=== PATIENT | male | born 1940 | race Caucasian/White ===

== ENCOUNTER 2020-07-21 13:53 | Observation (INO) | payer MEDICARE, SELFPAY ==
[2020-07-21] VITALS (8 sets, daily range): BP systolic 121–145; BP diastolic 69–85; PULSE 85–93; RESP 14–20; TEMP 36.5–37.1; O2SAT 95–100; BMI 26.2
--- NOTE | ~2020-07-21 | XR_ITS ---
EXAMINATION: XR chest 2V DATE: 07/21/2020 14:23 INDICATION: Palpitations. TECHNIQUE: Frontal and lateral views of the chest were obtained. COMPARISON: None. FINDINGS: There is mild atelectasis in the lower lung zones. No pleural effusion or pneumothorax. The heart size is normal. IMPRESSION: 1. Mild atelectasis in the lower lung zones. Reviewed, dictated and finalized at location A. RANCE SALES PRODUCER
--- NOTE | ~2020-07-21 | CT_ITS ---
EXAMINATION: CT abdomen pelvis w con EXAM DATE: 07/21/2020 14:51 INDICATION: right lower abdominal pain TECHNIQUE: Spiral CT of the abdomen and pelvis was performed following intravenous injection of 100 m L Omnipaque 350. Axial, coronal and sagittal images were reviewed. The dose-length product (DLP) fo r this examination was 565.35 mGy-cm. The exposure was tailored according to patient size (auto mA e xposure control), and iterative reconstruction (ASIR) was used as additional dose reduction technique . There is no prior study for comparison. FINDINGS: The largest liver cyst is in the left liver lobe, measures 1.6 cm. There is 1.6 cm left ad renal gland nodule statistically most likely adenoma. The spleen, pancreas are unremarkable. Gallbla dder is unremarkable. No biliary obstruction. Portal and splenic veins are patent. Kidneys enhance symmetrically. There is no hydronephrosis. There is a 10 cm right renal cyst. There are prostate r adiation seeds. The bladder is unremarkable. There is no retroperitoneal or pelvic lymphadenopathy. There is mild scattered arteriosclerotic disease. Appendix is fluid-filled, dilated with adjacent inflammation, measures up to 13 mm in diameter. No ev idence of perforation. No abscess. There is moderate sigmoid predominant colonic diverticulosis. The re is no adjacent inflammatory change to suggest diverticulitis. The stomach and small bowel are unre markable. There is expected amount of colonic stool. No free intraperitoneal gas. The heart is n ormal in size. There are no pericardial or pleural effusions. The lung bases are unremarkable. Las t moderate lumbar levoscoliosis. There are no osteoblastic or osteolytic lesions identified. Some lum bar vertebral body hemangiomas. IMPRESSION: 1. Acute uncomplicated appendicitis. 2. Moderate sigmoid diverticulosis. I discussed acute appendicitis with Dr. Vijaya Germain MD at 301 p.m. Reviewed, dictated and finalized at location A. STANT BROKER
--- NOTE | 2020-07-21 14:02 | ECG_ITS ---
Measurements Intervals [place] Rate: 93 P: 8 [place]: 160 QRS: -41 QRSD: 124 T: 7 QT: 370 QTc: 462 Interpretive Statements SINUS RHYTHM FREQUENT ATRIAL PREMATURE COMPLEXES LEFT AXIS DEVIATION RIGHT BUNDLE BRANCH BLOCK ABNORMAL ECG Electronically Signed On 07-21-2020 16:05:56 CLOTH MERCERIZER OPERATOR by Kehinde Hernández D.O.
[2020-07-21 14:16] LABS: Basophils Absolute Auto 0.1 K/mm3 (0.0-0.1); Basophils Percent Auto 0.3 % (0.2-1.2); Hematocrit 44.4 % (42.0-52.0); Immature Granulocyte Absolute 0.09 K/mm3 (0.00-0.031); Immature Granulocyte Percent A 0.5 % (0-0.5); Lymphocytes Absolute Auto 0.91 K/mm3 (0.9-3.2); Lymphocytes Percent Auto 4.9 % (18.3-44.2); Mean Corpuscular HGB Conc 33.8 g/dl (32-36); Mean Corpuscular Hemoglobin 33.1 pg (26-34); Mean Platelet Volume 9.8 fl (7.4-10.4); Monocytes Absolute Auto 1.1 K/mm3 (0.1-0.6); Neutrophils Absolute Auto 16.4 K/mm3 (1.3-6.7); Neutrophils Percent Auto 88.3 % (45.5-73.1); Platelet Count Result 195 k/mm3 (150-375); Red Blood Count 4.53 M/mm3 (4.6-6.20); Red Cell Distribution Width 12.5 % (11.5-14.5); White Blood Count 18.5 K/mm3 (4.5-10.0)
[2020-07-21 14:26] LABS: INR 1.2; Prothrombin Time 15.5 Seconds (11.1-14.7)
[2020-07-21 14:28] LABS: Anion Gap 7 mmol/L (8-16); Blood Urea Nitrogen 13 mg/dL (9-20); Calcium 9.1 mg/dL (8.4-10.2); Carbon Dioxide 27 mmol/L (22-30); Chloride 100 mmol/L (98-107); Estimated CRCL calculation 50 ml/min; Estimated Glomerular Filt Rate > 60; Glucose 126 mg/dL (75-110); Potassium 3.8 mmol/L (3.4-5.0); Sodium 134 mmol/L (137-145)
[2020-07-21 14:31] LABS: Partial Thromboplastin Time 35.4 SECONDS (22.3-36.8)
--- NOTE | 2020-07-21 14:34 | ED.GENADULT ---
HPI - General Adult General Chief complaint: Arrhythmia/Palpitations Stated complaint: rapid heart rate Time Seen by Provider: 07/21/20 14:05 Source: patient Mode of arrival: ambulatory Limitations: no limitations History of Present Illness HPI narrative: This patient is a 79 year old male with history of hypertension, hyperlipidemia, and Prostate CA who presents for evaluation of right side abdominal pain and elevated heart rate. Patient states he has had right side abdominal pain x 3 days. This pain has been constant and it has gotten worsen. He states he has not eaten in 2 days because he does not feel well. He denies diarrhea and he has not had a bowel movement in 2 days. He has been taking aspirin for his pain. He states today he checked his vitals he his heart rated was 100. He states this is higher than his normal resting HR of 50 so he called his PCP. He was told to come to ER for evaluation. He denies palpitations, chest pain, shortness or cough. Related Data Allergies Allergy/AdvReac Type Severity Reaction Status Date / Time pitavastatin Allergy Unknown Unknown Verified 07/21/20 14:02 simvastatin Allergy Unknown myalgias Verified 07/21/20 14:02 to statins Review of Systems Review of Systems: All systems reviewed & are unremarkable except as noted in HPI and below Constitutional: Constitutional: Denies chills, Reports fatigue and Denies fever(s) Cardiovascular: Cardiovascular: Denies chest pain and Denies radiating jaw, neck or arm pain Respiratory: Respiratory: Denies cough and Denies dyspnea Gastrointestinal: Gastrointestinal: Reports abdominal pain, Denies diarrhea, Reports nausea and Denies vomiting Musculoskeletal: Musculoskeletal: Denies back pain PMF Past Medical History Medical History (Updated 07/21/20 @ 18:28 by Harris Young CRNA) Acute appendicitis (~07/19/20) Essential (primary) hypertension (Unknown) ETOHism Hernia 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) (Unknown) Hyperlipidemia Hypertension Prediabetes Family History Family History Father Acute myocardial infarction Family history of cardiovascular disease Sibling Family history of dementia Grandparent Family history of dementia Mother Family history of Parkinson's disease Family history of dementia Social History Social History Smoking status: Never smoker Alcohol intake: current Drinks per week: 4 Substance use: never Gender identity (if verbalized by the patient): Male Spiritual care concerns: No Exam Const: General: no acute distress and alert Orientation/consciousness: patient oriented x3 Eyes: EOM: EOMs intact bilaterally Cardio: Rate: regular rate Rhythm: regular rhythm Heart sounds: no murmurs GI: GI Palp: Yes Soft to palpation, Yes Tenderness to palpation present (GI) (RLQ, RUQ) and No Guarding due to palpation present (GI) Auscultation: normal bowel sounds : General: Yes no CVA tenderness Back/Spine/Pelvis: Back: no CVA tenderness Skin: General skin exam: normal color Rashes: no rashes Neuro: General: patient oriented x3 and moves all extremities Psych: Mental Status: mental status grossly normal Affect: normal affect Course Reevaluation(s) Reevaluation #1: I Discussed with patient that he was found to have acute appendicitis. He last ate yesterday. He declines any pain medication. Date: 07/21/20 Time: 15:30 Consultations Consultation #1: I have discussed case with DR. Oliveira. He states he will call OR to see if patient can have surgery today. Date: 07/21/20 Time: 16:00 Consultation #2: Dr. Oliveira came to ER to talk with patient. He will admit patient and take to OR tomorrow morning. Date: 07/21/20 Time: 16:34 Vital Signs Vital signs: Vital Signs Temperature 97.7 F 07/21/20 13:58 Pulse Rate 93 07/21/20 13:58 Respiratory
[2020-07-21] MEDS: LACTATED RINGERS 1,000 ML 999 ML IV CONT (14:37)
[2020-07-21 14:39] LABS: Troponin I < 0.012 ng/mL (0.000-0.034)
[2020-07-21 14:53] LABS: Add Urine Microscopic? YES; Appearance Urine Clear (Clear); Bilirubin Urine Negative (Negative); Blood Urine Negative (Negative); Color Urine Amber (Yellow); Glucose Urine UA Negative (Negative); Ketones Urine Trace mg/dL (Negative); Leukocyte Esterase Ur Negative LEU/UL (Negative); Mucus Urine Heavy /lpf; Nitrate Urine Negative (Negative); Protein Urine 2+ mg/dL (Negative); RBC Urine 0-2 /hpf (0-2); Specific Grav Ur 1.027 (1.001-1.035)
[2020-07-21 14:57] LABS: Lactic Acid Reflex 1.2 mmol/L (0.7-2.1)
[2020-07-21 15:09] LABS: Alanine Aminotransferase 16 U/L (4-50); Alkaline Phosphatase 67 U/L (38-126); Aspartate Amino Transferase 20 U/L (17-59); Bilirubin,Total 1.1 mg/dL (0.2-1.3); Lipase 25 U/L (23-300); Magnesium 1.7 mg/dL (1.6-2.3)
--- NOTE | 2020-07-21 16:29 | PC.NURSE ---
Patient going to surgery at 0930.
--- NOTE | 2020-07-21 16:57 | PM.IMHP ---
H&P: HPI History of Present Illness Date/Time: 07/21/20 16:57 Chief Complaint: Right-sided abdominal pain and tachycardia. Narrative: Marcos Camacho is a 79 year old white male with history of hypertension, hyperlipidemia, and Prostate CA who presents for evaluation of right sided abdominal pain and elevated heart rate. Patient states he has had right side abdominal pain x 3 days. States that he began feeling a little bit ill with little bit of periumbilical abdominal pain while he was trying to sleep Monday night into Monday morning. This pain has been constant since i started, and it has gotten worsen. He states he has not eaten in 2 days because he does not feel well. He has drank some water but nothing else. He denies diarrhea and he has not had a bowel movement in 2 days. He has been taking aspirin for his pain. He states today he checked his vitals he his heart rated was 100. He states this is higher than his normal resting HR of 50 so he called his PCP. He was told to come to ER for evaluation. He denies palpitations, chest pain, shortness or cough. Workup in the emergency room today revealed abnormalities in the kidneys some both sides with some CIS also the prostate seeds from his previous prostate cancer treatment. Also a dilated 13 mm appendix with surrounding inflammation but without signs of perforation or abscess formation. Therefore, I have discussed with him the risks benefits and possible complications of both treatment with antibiotics alone and follow-up versus surgical intervention with laparoscopic appendectomy. He has decided to proceed with the latter. Review of Systems Constitutional: Constitutional: Reports no additional constitutional complaints and Denies frequent falls Eyes: Eyes: Reports as per HPI ENT: Reports Normal hearing present, Denies dizziness and Reports other (Mucous membranes moist.) Cardiovascular: Cardiovascular: Denies chest pain, Denies palpitations, Denies dyspnea and Denies dyspnea on exertion Respiratory: Respiratory: Denies hemoptysis, Denies dyspnea, Denies dyspnea on exertion and Denies wheezing Gastrointestinal: Gastrointestinal: Reports no additional gastrointestinal complaints, Reports bloating, Reports constipation, Reports nausea and Reports vomiting Comments: Patient has known that he has had a repair of bilateral inguinal hernias and a somewhat high-riding testicle on the right since that time. These were repaired with mesh he has not been having any specific pain or problems with bulging in either groin. Genitourinary: Genitourinary: Denies hematuria, Denies nocturia and Denies urinary frequency Comments: patient has a large renal cyst on the right kidney and some small ones on the left. Prior to today CT he did not know that he had these. Musculoskeletal: Musculoskeletal: Denies deformity and Reports other ( no clubbing,cyanosis, or edema) Integumentary/Breasts: Skin/Breast: Denies new lesions, Denies rash and Denies unusual bruising Neurologic: Reports Normal hearing present, Denies dizziness, Denies frequent falls, Denies memory loss and Denies seizure-like activity Psychiatric: Psychiatric: Denies memory loss and Reports other ( normal mood and mental status) Endocrine: Endocrine: Denies cold intolerance and Denies palpitations Hematologic/Lymphatic: Hematologic/Lymphatic: Denies easy bleeding and Denies easy bruising Allergic/Immunologic: Allergic/Immunologic: Denies wheezing and Reports other ( no lymphadenopathy) [facility] Family History Family History Father Acute myocardial infarction Family history of cardiovascular disease Sibling Family history of dementia Grandparent Family history of dementia Mother Family history of Parkinson's disease Family history of dementia Social History Social History Smoking status: Never smoker [place]
--- NOTE | 2020-07-21 18:22 | ADMGEN ---
This patient, Marcos Camacho, was admitted to Medical Room 261-01. Patient/family oriented to hospital policies and general routines including ID bracelet, bed and alarms, visiting hours, pain management, procedures, bathroom and other care routines, personal items, smoking policy, room service/diet, and visiting hours. Information on how to activate the Rapid Response Team has been discussed. Patient/Family are encouraged to report perceived risks to care and to ask questions if they do not understand what they are told or what they should do.
--- NOTE | 2020-07-21 18:24 | WPDANESEPP ---
Anes - Eval Pre Procedure Procedure: Operation Date: 07/22/20 09:30 Proposed Procedures p Laparoscopic Appendectomy - Wiliam Oliveira MD Date/Time: 07/21/20 18:24 Pre Op Diagnosis: acute uncomplicated appendicitis Patient Data Age: 79 Gender: M Height: 5 ft 9 in Weight: 83.9 kg Last Vital Signs Temp 98.8 F 07/21/20 16:46 Pulse 89 07/21/20 17:28 Resp 14 07/21/20 17:28 BP 121/80 07/21/20 17:28 Pulse Ox 98 07/21/20 17:28 Allergies Allergy/AdvReac Type Severity Reaction Status Date / Time pitavastatin Allergy Unknown Unknown Verified 07/21/20 14:02 simvastatin Allergy Unknown myalgias Verified 07/21/20 14:02 to statins Home Medications Medication Instructions Recorded Confirmed Type omeprazole 20 mg capsule,delayed 20 mg PO DAILY #90 cap 10/09/19 02/26/20 Rx release amlodipine 10 mg tablet 10 mg PO DAILY #90 tablet 01/21/20 02/26/20 Rx ezetimibe 10 mg tablet 10 mg PO DAILY #90 tablet 07/20/20 Rx Laboratory Tests 07/21/20 07/21/20 07/21/20 14:09 14:10 14:10 WBC 18.5 K/mm3 H K/mm3 (4.5-10.0) RBC 4.53 M/mm3 L M/mm3 (4.6-6.20) Hgb 15.0 g/dL g/dL (14.0-18.0) Hct 44.4 % % (42.0-52.0) MCV 98.0 fl fl (80-100) MCH 33.1 pg pg (26-34) MCHC 33.8 g/dl g/dl (32-36) RDW 12.5 % % (11.5-14.5) Plt Count 195 k/mm3 k/mm3 (150-375) MPV 9.8 fl fl (7.4-10.4) Immature Gran % (Auto) 0.5 % % (0-0.5) Neut % (Auto) 88.3 % H % (45.5-73.1) Lymph % (Auto) 4.9 % L % (18.3-44.2) Porter % (Auto) 6.0 % % (2.6-8.5) Eos % (Auto) 0.0 % % (0-4.4) Baso % (Auto) 0.3 % % (0.2-1.2) Lymph # (Auto) 0.91 K/mm3 K/mm3 (0.9-3.2) Porter # (Auto) 1.1 K/mm3 H K/mm3 (0.1-0.6) Eos # (Auto) 0.0 K/mm3 K/mm3 (0-0.3) Baso # (Auto) 0.1 K/mm3 K/mm3 (0.0-0.1) Abs Immat Gran (auto) 0.09 K/mm3 H K/mm3 (0.00-0.031) Absolute Neuts (auto) 16.4 K/mm3 H K/mm3 (1.3-6.7) Absolute Nucleated RBC 0.0 K/mm3 K/mm3 (0.0-0.012) Nucleated RBC % 0.0 % % (0.0-0.2) PT 15.5 Seconds H Seconds (11.1-14.7) INR 1.2 APTT 35.4 SECONDS SECONDS (22.3-36.8) Sodium Potassium Chloride Carbon Dioxide Anion Gap BUN Creatinine Estim Creat Clear Calc Estimated GFR Glucose Lactic Acid Calcium Magnesium 1.7 mg/dL mg/dL (1.6-2.3) Total Bilirubin 1.1 mg/dL mg/dL (0.2-1.3) Direct Bilirubin 0.0 mg/dL mg/dL (0-0.3) AST 20 U/L U/L (17-59) ALT 16 U/L U/L (4-50) Alkaline Phosphatase 67 U/L U/L (38-126) Troponin I Total Protein 7.0 g/dL g/dL (6.3-8.2) Albumin 4.0 g/dL g/dL (3.5-5.1) Lipase 25 U/L U/L (23-300) Urine Color Urine Appearance Urine pH Ur Specific [place] Urine Protein Urine Glucose (UA) Urine Ketones Ur Blood (Man) Urine Nitrate Urine Bilirubin Urine Urobilinogen Leukocyte Esterase Rfl Urine RBC Urine WBC Hyaline Casts Urine Mucus 01/05/21 01/05/21 01/05/21 14:10 14:38 14:38 WBC RBC Hgb Hct MCV MCH MCHC RDW Plt Count MPV Immature Gran % (Auto) Neut % (Auto) Lymph % (Auto) Porter % (Auto) Eos % (Auto) Baso % (Auto) Lymph # (Auto) Porter # (Auto) Eos # (Auto)
[2020-07-21] MEDS: SODIUM CHLORIDE 0.9% IV 1,000 ML 100 ML IV CONT (18:40)
[2020-07-21] MEDS: LORazepam (*CRX) 0.5 MG TABLET PO (20:39)
[2020-07-22] VITALS (15 sets, daily range): BP systolic 109–144; BP diastolic 65–77; PULSE 70–100; RESP 14–18; TEMP 36.3–37.9; O2SAT 93–100
[2020-07-22] MEDS: SODIUM CHLORIDE 0.9% IV 1,000 ML 100 ML IV CONT ×2 (06:04→13:09)
[2020-07-22 06:19] LABS: Basophils Percent Auto 0.2 % (0.2-1.2); Eosinophils Absolute Auto 0.1 K/mm3 (0-0.3); Eosinophils Percent Auto 0.7 % (0-4.4); Hematocrit 38.1 % (42.0-52.0); Hemoglobin 12.9 g/dL (14.0-18.0); Immature Granulocyte Percent A 1.1 % (0-0.5); Lymphocytes Absolute Auto 0.66 K/mm3 (0.9-3.2); Lymphocytes Percent Auto 3.7 % (18.3-44.2); Mean Corpuscular HGB Conc 33.9 g/dl (32-36); Mean Corpuscular Hemoglobin 32.9 pg (26-34); Mean Corpuscular Volume 97.2 fl (80-100); Mean Platelet Volume 10.2 fl (7.4-10.4); Monocytes Absolute Auto 0.8 K/mm3 (0.1-0.6); Monocytes Percent Auto 4.4 % (2.6-8.5); Neutrophils Percent Auto 89.9 % (45.5-73.1); Platelet Count Result 154 k/mm3 (150-375); Red Blood Count 3.92 M/mm3 (4.6-6.20); Red Cell Distribution Width 12.8 % (11.5-14.5); White Blood Count 17.8 K/mm3 (4.5-10.0)
[2020-07-22 06:38] LABS: Alanine Aminotransferase 13 U/L (4-50); Albumin Level 3.4 g/dL (3.5-5.1); Alkaline Phosphatase 54 U/L (38-126); Anion Gap 5 mmol/L (8-16); Aspartate Amino Transferase 17 U/L (17-59); Bilirubin,Total 1.4 mg/dL (0.2-1.3); Blood Urea Nitrogen 14 mg/dL (9-20); Calcium 8.4 mg/dL (8.4-10.2); Carbon Dioxide 28 mmol/L (22-30); Chloride 102 mmol/L (98-107); Estimated CRCL calculation 56 ml/min; Estimated Glomerular Filt Rate > 60; Glucose 117 mg/dL (75-110); Magnesium 1.5 mg/dL (1.6-2.3); Potassium 3.2 mmol/L (3.4-5.0); Sodium 135 mmol/L (137-145)
--- NOTE | 2020-07-22 08:11 | PC.NURSE ---
To OR via stretcher with OR staff. SBAR sent to preop.
--- NOTE | 2020-07-22 08:43 | WPDANESEFPP ---
Anes - Eval Final PreProcedure Day of Procedure 07/22/20 08:43 Patient weight: overweight Heart: regular rate and rhythm Lungs: clear to auscultation and normal air movement Airway: Mallampati scale class II Neurological: alert and oriented Last oral intake: >/= 8 hours ASA classification: III Emergent: no Anesthetic plan: proceed Anesthesia type and monitoring: general ETT and standard monitoring Informed Consent: The patient's anesthetic plan and its attendant risks and benefits were discussed with the patient/family/POA. Questions were solicited and answers provided to the satisfaction of the patient/family/POA.
[2020-07-22] MEDS: LACTATED RINGERS 1,000 ML 30 ML IV CONT ×2 (08:46→11:46)
--- NOTE | 2020-07-22 09:33 | SUR.PREOP ---
Up to bathroom.
--- NOTE | 2020-07-22 09:43 | WPDHPUPDATE1 ---
History and Physical Update Update Date/Time: 07/22/20 09:43 History and Physical has been reviewed, including an updated exam of the patient. There are NO changes in the patient's condition. Risks, benefits, and alternatives have been discussed and questions answered. Patient agrees to proceed with procedure.
[2020-07-22] MEDS: BUPIVACAINE/EPINEPHRINE 0.25% 10 ML VIAL INFILTRATE (10:15)
--- NOTE | 2020-07-22 11:55 | PM.PROC ---
Procedure Note - Detailed Date of procedure: 07/22/20 Pre-op diagnosis: acute uncomplicated appendicitis Post-op diagnosis: other (Acute appendicitis with walled-off perforation.) Procedure performed: Laparoscopic Appendectomy Description of procedure: The patient was seen again in his hospital room. The risks, benefits, complications, treatment options, and expected outcomes were discussed with the patient and/or family. The possibilities of reaction to medication, pulmonary aspiration, perforation of viscus, bleeding, recurrent infection, finding a normal appendix, the need for additional procedures, failure to diagnose a condition, and creating a complication requiring transfusion or operation were discussed. There was concurrence with the proposed plan and informed consent was obtained. The site of surgery was properly noted/marked. The patient was taken to Operating Room, and a time out was preformed which identified this as the proper patient, and the procedure verified as laparoscopic appendectomy, possible open. The patient was placed in the supine position and general anesthesia was induced, along with placement of orogastric tube, SCD hose, and a [place] catheter. The abdomen was prepped and draped in a sterile fashion. A 5 mm umbilical incision was made and the peritoneal cavity was accessed using the Veress needle technique. Once the abdomen was insufflated to 14 mmHg pressure a 5 mm XL trocar over the 0? 5 mm scope was carefully twisted into the abdomen via the umbilicus. The pneumoperitoneum was then established to steady pressure of 14 mm Hg. A 12 mm laparoscopic port was placed through a transverse suprapubic incision. An additional 5 mm cannula was then placed in the left upper quadrant of the abdomen at a level half way between the level of the umbilicus and the costal margin on the left under direct vision. A careful evaluation of the entire abdomen was carried out. The patient was placed in Trendelenburg and left lateral decubitus position. The small intestines were retracted in the cephalad and left lateral direction away from the pelvis and right lower quadrant. The patient was found to have an enlarged and inflamed appendix that was extending toward the right side of the abdomen. There was evidence of perforation. On the lateral side of the very base of the appendix a small fecalith came out and was sent in the bag with the appendix at the time of extraction. The appendix was carefully dissected. Once it was free a 45 mm ethicon endogastroentestinal stapler with a vascular load was placed across the mesoappendix. This was fired and hemostasis was checked along the staple line and appeared to be adequate. Then another cartridge containing a vascular load applied and the stapler then placed right to the base of the appendix. This was also fired and bleeding was checked. The appendix was then divided at its base using the same 45 mm stapler with a 3.5 mm bowel wall load. Minimal appendiceal stump was left in place. There was no evidence of bleeding, leakage, or complication after division of the appendix at its junction with the cecum. The appendix was then placed in an endobag which had been brought through the 12 mm suprapubic port site. The appendix and the bag were then extracted through this larger port site in the suprapubic position. I did have to make the skin incision slightly larger at the suprapubic region to get the bag and the appendix out. The suprapubic port site was closed using a #1 Polysorb suture passed with a Doug-Resendiz cone and needle suture passer. I also used a standard needle crawford externally through the suprapubic incision at the level of the fascia. The trocar site skin wounds were closed using 4-0 undyed Monocryl and surgical glue. Instrument, sponge, and needle counts were correct at the conclusion of the case. Implants: none Anesthesia: CARLOTA Surgeon: Wiliam Oliveira MD Life Trainer: SARAH Nelson, OR linn
[2020-07-22] MEDS: fentaNYL CITRATE INJ (*CRX) 100 MCG/2 ML VIAL 25 MCG IV PUSH (12:12)
--- NOTE | 2020-07-22 12:24 | SUR.PHASEI ---
[id number] TO GET OOB TO URINATE, UNABLE TO REASON WITH PT, URINAL PLACED, REFUSES TO USE. 1220-CONTINUES TO REFUSE TO USE URINAL, STATES WANTS TO GO INTO BR, RATIONALE EXPLAINED TO WHY PT CANNOT GET UP.
--- NOTE | 2020-07-22 12:54 | PC.NURSE ---
Patient returned from surgery via stretcher with OR staff. Settled into room. No distress noted. Assisted to bathroom to urinate. Patient states he has the urge to void and needs to go into the bathroom to do so.
[2020-07-22] MEDS: MAGNESIUM SULF 2 GM/WATER 50ML 2 GM/50 ML BAG IVPB (14:22)
[2020-07-22] MEDS: HYDROcodone/acetaminophen (*CRX) 5-325 MG TABLET 1 TAB PO (16:40)
--- NOTE | 2020-07-22 17:08 | PM.DS ---
DS: Admitting Diagnosis Admitting Diagnosis Admitting Diagnosis: Acute uncomplicated appediicitis DS: Discharge Diagnosis Discharge Diagnosis (1) Acute appendicitis with appendiceal abscess: Onset Date: ~07/19/20 Code(s): K35.33 - Acute appendicitis with perforation and localized peritonitis, with abscess Status: Acute Assessment and Plan: this was the main reason for the patient's admission. He underwent operation on 07/22/2020 he was found to have acute appendicitis with perforation that was walled off. Appendectomy was accomplished it was felt that this was localized and no drain needed. Patient was doing well postoperatively tolerating liquids without nausea and minimal abdominal pain. Was felt he was appropriate for discharge. He received 1 last dose of Zosyn at around 4:30 p.m. and will start on Levaquin and Flagyl for 7 days because of his walled-off perforation. Follow-up in the office in about 1 week. 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): Onset Date: Unknown Code(s): E78.1 - Pure hyperglyceridemia Status: Acute (4) Essential (primary) hypertension: Onset Date: Unknown Code(s): I10 - Essential (primary) hypertension Status: Acute (5) Malignant neoplasm of prostate: Onset Date: Unknown Code(s): C61 - Malignant neoplasm of prostate Status: Acute (6) Rotator cuff arthropathy of right shoulder: Onset Date: Unknown Code(s): M12.811 - Other specific arthropathies, not elsewhere classified, right shoulder Status: Acute DS: Summary Hospital Course Reason for hospitalization: acute appendicitis Hospital Course: patient uneventful hospital course. He was seen late in the day on 07/21/2020 with acute uncomplicated appendicitis by CT scan. Geovany Gudino was not available at the time that he was admitted and we started him on IV antibiotics and were able to schedule him for the following morning. Today wonder went operative intervention which included laparoscopy and careful dissection of the appendix. There was a hole in it but it was all walled off. Postoperatively several hours after surgery he was awake feeling well not having to take much in the way of pain medication tolerating liquids and wanted to go home. Time spent discussing smoking cessation with patient: more than 10 minutes Status at Discharge Cognitive/behavioral status at discharge: Normal Functional status at discharge: independent ambulation Overall status at discharge: patient is not back to baseline ( patient slightly weak but should be back to baseline in 1-2 days) Time Spent with Patient Time attestation: Total time spent providing and/or coordinating discharge services: Time spent: Less than 30 minutes Specific discharge activities: patient can walk as much as he would like. He may shower in the morning. He can gradually increase his diet as tolerated. Instruction sheet sent home with the patient. Exam Const: General: cooperative, no acute distress, alert and awake Orientation/consciousness: patient oriented x3 HENMT: Mouth: Yes moist mucous membranes Neck: Neck: normal visual inspection Chest: Chest palpation & inspection: normal inspection of the chest Resp: Effort & Inspection: normal respiratory effort Auscultation: clear to auscultation bilaterally Cardio: Jugular venous distension: no JVD Rate: regular rate Rhythm: regular rhythm GI: Inspection: incision ( Clean and dry) Auscultation: normal bowel sounds Rectal Exam: deferred Neuro: General: patient oriented x3 and moves all extremities Speech: normal speech Extrem: General: normal exam except as noted Psych: Mental Status: mental status grossly normal Speech and movement: Normal speech and movement present Affect: normal affect Thought content: Yes Normal thought content present
== END 2020-07-22 19:15 | disposition home or self-care (01) ==
LOC: ANHED 16:36 → ANH2MED 17:37
PROVIDERS: Emergency Medicine; Admitting Provider Surgery; Emergency Provider General Practice; PCP Family Medicine; Visit Provider Surgery
PROC: 0DTJ4ZZ Resection of Appendix, Percutaneous Endoscopic Approach (ICD-10-PCS; CPT 44970; principal; 2020-07-22 09:30)
DX: K35.33 Acute appendicitis with perforation, localized peritonitis, and gangrene, with abscess (principal); R00.0 Tachycardia, unspecified; C61 Malignant neoplasm of prostate; I10 Essential (primary) hypertension; E78.5 Hyperlipidemia, unspecified; R73.03 Prediabetes; M12.811 Other specific arthropathies, not elsewhere classified, right shoulder; R91.8 Other nonspecific abnormal finding of lung field; R94.31 Abnormal electrocardiogram [ECG] [EKG]; K57.90 Diverticulosis of intestine, part unspecified, without perforation or abscess without bleeding; N28.1 Cyst of kidney, acquired
CPT/HCPCS: 44970; 36415; 71046; 74177; 80048; 80053; 80076; 81001; 83605; 83690; 83735; 84484; 85025; 85610; 85730; 87086; 88304; 93005; 96361; 96365; 96366; 96367; 96375; 99285; A9270; G0378; J0330; J1100; J2370; J2405; J2543; J2704; J2710; J3010; J3475; J3480; J7030; J7120; Q9967

== ENCOUNTER → 2020-10-13 10:05 | Outpatient (REF) | payer MEDICARE, SELFPAY | LOC: ANHLAB 10:05 | PROVIDERS: PCP Family Medicine; Visit Provider Nurse Practitioner | DX: C44.311 Basal cell carcinoma of skin of nose (principal) | CPT/HCPCS: 88305 ==

== ENCOUNTER → 2020-11-02 07:27 | Outpatient (REF) | payer MEDICARE, SELFPAY | LOC: ANHLAB 07:27 | PROVIDERS: PCP Family Medicine; Visit Provider Nurse Practitioner | DX: C44.311 Basal cell carcinoma of skin of nose (principal) | CPT/HCPCS: 88305; 88331 ==

== ENCOUNTER → 2022-04-11 11:34 | Outpatient (CLI) | payer MEDICARE, SELFPAY ==
--- NOTE | ~2022-04-11 | XR_ITS ---
EXAMINATION: XR shoulder RT min 2V INDICATION: Right shoulder pain TECHNIQUE: Four views of the right shoulder are submitted. COMPARISON: None FINDINGS: Normal alignment. No fracture. There is advanced osteoarthritis of the acromioclavicular bartolome int and moderate osteoarthritis of the glenohumeral joint. Soft tissues are unremarkable. IMPRESSION: 1. Osteoarthritis without acute osseous abnormality. Reviewed, dictated and finalized at location A.
== END ==
PROVIDERS: PCP Family Medicine; Visit Provider Family Medicine
DX: M19.011 Primary osteoarthritis, right shoulder (principal)
CPT/HCPCS: 73030

== ENCOUNTER 2022-06-14 07:00 | Outpatient (NON) | payer MEDICARE, SELFPAY | END 2022-06-14 07:01 | disposition home or self-care (01) | LOC: ANHLAB 06-15 11:42 | PROVIDERS: PCP Family Medicine; Visit Provider Nurse Practitioner | DX: D18.01 Hemangioma of skin and subcutaneous tissue (principal); L72.0 Epidermal cyst | CPT/HCPCS: 88304; 88305 ==

== ENCOUNTER 2023-05-05 08:56 | Outpatient (CLI) | payer MEDICARE, SELFPAY ==
[2023-05-05 15:21] LABS: Alanine Aminotransferase 14 U/L (6-50); Albumin Level 4.2 g/dL (3.5-5.1); Alkaline Phosphatase 70 U/L (38-126); Anion Gap 7 mmol/L (8-16); Aspartate Amino Transferase 30 U/L (17-59); Bilirubin,Total 0.6 mg/dL (0.2-1.3); Blood Urea Nitrogen 14 mg/dL (9-20); Calcium 8.9 mg/dL (8.4-10.2); Carbon Dioxide 28 mmol/L (22-30); Chloride 102 mmol/L (98-107); Cholesterol 218 mg/dL (0-200); Estimated Glomerular Filt Rate > 60; Glucose 97 mg/dL (65-110); HDL Direct 52 mg/dL; Sodium 137 mmol/L (137-145); Triglycerides 99 mg/dL (<150)
[2023-05-05 15:32] LABS: LDL Cholesterol Direct 128 mg/dL
[2023-05-05 16:48] LABS: Hemoglobin A1C 5.7 % (<5.7)
== END 2023-05-05 08:57 | disposition home or self-care (01) ==
LOC: ANHGOSHLAB 08:57
PROVIDERS: PCP Family Medicine; Visit Provider Family Medicine
DX: Z12.11 Encounter for screening for malignant neoplasm of colon (principal); Z12.12 Encounter for screening for malignant neoplasm of rectum; Z13.228 Encounter for screening for other metabolic disorders; E78.5 Hyperlipidemia, unspecified; R73.01 Impaired fasting glucose
CPT/HCPCS: 36415; 80053; 80061; 83036

== ENCOUNTER 2024-02-05 11:40 | Outpatient (CLI) | payer MEDICARE, SELFPAY ==
--- NOTE | ~2024-02-05 | US_ITS ---
EXAMINATION: US scrotum doppler DATE: 02/05/2024 12:15 INDICATION: N43.3 - Hydrocele, unspecified . TECHNIQUE: Grayscale and Doppler ultrasound images of the testes were obtained. COMPARISON: None. FINDINGS: The right testis measures cm. The left testis measures cm. No testicular mass. There is nor mal vascular flow to both testes. The right epididymis is normal with normal vascular flow. The left epididymis is normal with normal vascular flow. There is no varicocele. Large simple left hydrocele. Moderate volume right hydrocele with thin septations. IMPRESSION: Bilateral hydroceles, large on the left and moderate on the right. Reviewed, dictated and finalized at location K.
== END 2024-02-05 11:41 ==
PROVIDERS: PCP Family Medicine; Visit Provider Family Medicine
DX: N43.3 Hydrocele, unspecified (principal)
CPT/HCPCS: 76870; 93976

== ENCOUNTER 2024-03-14 08:12 | Outpatient (CLI) | payer MEDICARE, SELFPAY ==
--- NOTE | 2024-03-14 08:28 | ECG_ITS ---
Test Date: 2024-03-14 08:31:54 Measurements Intervals [place] Rate: 54 P: 5 IN: 168 QRS: -27 QRSD: 130 T: 27 QT: 424 QTc: 403 Interpretive Statements SINUS BRADYCARDIA BORDERLINE LEFT AXIS DEVIATION [QRS AXIS < -20] POSSIBLE RIGHT VENTRICULAR CONDUCTION DELAY [RSR (QR) IN V1/V2] ABNORMAL ECG No previous ECG available for comparison Electronically Signed On 03-14-2024 13:23:58 CDT by John Seo M.D.
== END 2024-03-14 08:13 | disposition home or self-care (01) ==
PROVIDERS: PCP Family Medicine; Visit Provider Urology
DX: Z01.818 Encounter for other preprocedural examination (principal); I10 Essential (primary) hypertension; R94.31 Abnormal electrocardiogram [ECG] [EKG]
CPT/HCPCS: 93005

== ENCOUNTER 2024-03-19 00:19 | Day surgery (SDC) | payer MEDICARE, SELFPAY ==
[2024-03-13 16:01] VITALS: BMI 24.0
--- NOTE | 2024-03-13 16:16 | PC.NURSE ---
Report to the Outpatient Waiting Room, entrance under the green pavilion located off [facility], at time _6:00AM_ on date _03/19/24__. Planned Procedure Time: __7:30AM .? Time changes happen often and if your time is changed the preop area will call you the afternoon before. - You and your visitor will be asked to self-screen and do not enter if you have any COVID symptoms. Please call surgeon if you need to reschedule. - A mask is optional within the hospital at this time. Patients may have clear liquids (water, carbonated beverages, clear teas, apple juice) until 3 hours prior to surgery with a maximum of 20 ounces. - No food from midnight until time of surgery and no smoking. Take only the following medications with a SIP of water on the morning of surgery: __AMLODIPINE DO NOT STOP ANY OF YOUR OTHER PRESCRIPTION MEDICATIONS PRIOR TO SURGERY EXCEPT THE FOLLOWING Medications to discontinue per physician NONE Date to take last dose Please no make-up, nail french, hairspray, perfume, deodorant, or body powder the day of surgery.? No jewelry (including any body piercings) or valuables the day of surgery, leave them at home.? Please take a shower or bath the night before, or the morning of, surgery with an antibacterial soap.? Wear comfortable, loose fitting clothing.? - Jewelry must be removed prior to entering the operating room.? Rings and piercings that are not removed may be cut off. - The hospital will not accept responsibility for valuables.? - Please leave all valuables, including medications, at home the day of surgery. If you are going home after surgery, a licensed team driver must drive you home.? - NO public transportation without another adult if you receive anesthesia. - We recommend that an adult stay with you for 24 hours following discharge. - We also recommend that you do not drive, make important decision, drink alcoholic beverages, or take any drugs that were not prescribed by your health care provider for at least 24 hours after your discharge time. Follow any additional instructions given to you from your surgeon. Telephone instructions given to PATIENT and asked if any additional questions and then verbalized understanding. Patient advised to call surgeon office or pre surgery nurse liaison [phone] if any additional questions.
[2024-03-19 06:15] VITALS: BP 140/75; PULSE 57; RESP 16; TEMP 36.7; O2SAT 99
[2024-03-19 06:27] VITALS: BMI 24.0
[2024-03-19] MEDS: LACTATED RINGERS 1,000 ML 30 ML IV CONT ×2 (06:40→08:45)
--- NOTE | 2024-03-19 06:40 | WPDANESEPPF ---
Anes - Initial Pre Proc Eval Procedure: Operation Date: 03/19/24 07:30 Proposed Procedures p Left Hydrocelectomy - Walker Palacios MD Date/Time: 03/19/24 06:40 Surgeon: Walker Palacios MD Pre Op Diagnosis: left hydrocele Patient Data Age: 83 Gender: M Height: 1.78 m Weight: 76.2 kg Allergies Allergy/AdvReac Type Severity Reaction Status Date / Time pitavastatin AdvReac Unknown Unknown Verified 03/19/24 06:18 simvastatin AdvReac Unknown myalgias Verified 03/19/24 06:18 to statins Home Medications Medication Instructions Recorded Confirmed Type ezetimibe 10 mg tablet 10 mg PO DAILY #90 tabs 07/27/23 03/13/24 Rx amlodipine 10 mg tablet 10 mg PO DAILY #90 tabs 08/01/23 03/19/24 Rx famotidine 20 mg tablet 20 mg PO DAILY #90 tabs 01/29/24 03/13/24 Rx Patient hx anesthesia problems: none Family hx anesthesia problems: none Results Review: All pre-operative results and documents have been reviewed as part of the pre-operative evaluation. 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) (Unknown) History of prostate cancer Hyperlipidemia Hypertension Hypokalemia terminal block assembler use of drug Low magnesium level Malignant neoplasm of prostate (Unknown) Non-healing skin lesion of nose Prediabetes Recurrent right inguinal hernia Rotator cuff arthropathy of right shoulder (Unknown) Skin neoplasm Surgical History Surgical History History of hernia repair S/P laparoscopic appendectomy (~07/22/20) Family History Family History Father Acute myocardial infarction Family history of cardiovascular disease Sibling Family history of dementia Grandparent Family history of dementia Mother Family history of Parkinson's disease Family history of dementia Acute arthritis Social History Social History Smoking status: Never smoker Alcohol intake: current Drinks per week: 4 Alcohol use details: socially Substance use: never Do You Feel Safe in your Home?: Yes Lack of Transportation: No Lack of Food: Never True Current Housing: I Have Housing Concerned About Future Housing: No Difficulty Paying Gas/Electric Bills: No Difficulty Paying for Meds: No Currently Unemployed: No Education: Master's Degree or Higher Difficulty w/ Childcare or Family Care: No Living arrangements: with family Additional living arrangements comments: Gender identity (if verbalized by the patient): Male Spiritual care concerns: No Anes - Eval Final PreProcedure Day of Procedure 03/19/24 06:40 Patient weight: normal Heart: regular rate and rhythm Lungs: clear to auscultation Airway: Mallampati scale class II Neurological: alert and oriented Last oral intake: >/= 8 hours ASA classification: III Emergent: no Anesthetic plan: proceed Anesthesia type and monitoring: general LMA and standard monitoring Results Review: All pre-operative results and documents have been reviewed as part of the pre-operative evaluation. Informed Consent: The patient's anesthetic plan and its attendant risks and benefits were discussed with the patient/family/POA. Questions were solicited and answers provided to the satisfaction of the patient/family/POA.
--- NOTE | 2024-03-19 07:31 | PM.IMHP ---
H&P: HPI History of Present Illness Date/Time: 03/19/24 07:31 Chief Complaint: ;left hydrocele Narrative: 83 yr old male presents for left hydrocelectomy Review of Systems Review of Systems: All systems reviewed & are unremarkable except as noted in HPI and below PMFSH Past Medical History Medical History Actinic keratoses Acute appendicitis (~07/19/20) Acute appendicitis with appendiceal abscess (~07/19/20) Acute gangrenous appendicitis with perforation and peritonitis Anemia Basal cell carcinoma (BCC) of left ala nasi Bilateral hydrocele BMI 26.0-26.9,adult Dyslipidemia Encounter for surgical aftercare following surgery on the digestive system Esophageal reflux Essential (primary) hypertension (Unknown) ETOHism Hernia 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) (Unknown) History of prostate cancer Hyperlipidemia Hypertension Hypokalemia rat exterminator use of drug Low magnesium level Malignant neoplasm of prostate (Unknown) Non-healing skin lesion of nose Prediabetes Recurrent right inguinal hernia Rotator cuff arthropathy of right shoulder (Unknown) Skin neoplasm Surgical History Surgical History History of hernia repair S/P laparoscopic appendectomy (~07/22/20) Family History Family History Father Acute myocardial infarction Family history of cardiovascular disease Sibling Family history of dementia Grandparent Family history of dementia Mother Family history of Parkinson's disease Family history of dementia Acute arthritis Social History Social History Smoking status: Never smoker Alcohol intake: current Drinks per week: 4 Alcohol use details: socially Substance use: never Do You Feel Safe in your Home?: Yes Lack of Transportation: No Lack of Food: Never True Current Housing: I Have Housing Concerned About Future Housing: No Difficulty Paying Gas/Electric Bills: No Difficulty Paying for Meds: No Currently Unemployed: No Education: Master's Degree or Higher Difficulty w/ Childcare or Family Care: No Living arrangements: with family Additional living arrangements comments: Gender identity (if verbalized by the patient): Male Spiritual care concerns: No Meds Home Medications and Allergies Home Medications Medication Instructions Recorded Confirmed Type ezetimibe 10 mg tablet 10 mg PO DAILY #90 tabs 07/27/23 03/13/24 Rx amlodipine 10 mg tablet 10 mg PO DAILY #90 tabs 08/01/23 03/19/24 Rx famotidine 20 mg tablet 20 mg PO DAILY #90 tabs 01/29/24 03/13/24 Rx Allergies Allergy/AdvReac Type Severity Reaction Status Date / Time pitavastatin AdvReac Unknown Unknown Verified 03/19/24 06:18 simvastatin AdvReac Unknown myalgias Verified 03/19/24 06:18 to statins Vital Signs Vital Signs - 24 hr 03/19/24 06:15 Temperature 36.7 C Pulse Rate 57 L Respiratory Rate 16 Blood Pressure 140/75 Pulse Oximetry 99 Oxygen Delivery Room Air Exam Const: General: cooperative and comfortable Resp: Effort & Inspection: normal respiratory effort Cardio: Rate: regular rate Rhythm: regular rhythm : Scrotum: Hydrocele present Assessment and Plan Assessment and plan (1) Hydrocele, left: Code(s): N43.3 - Hydrocele, unspecified Status: Acute Assessment and Plan: left hydrocelectomy
--- NOTE | 2024-03-19 07:37 | WPDHPUPDATE1 ---
History and Physical Update Update Date/Time: 03/19/24 07:37 History and Physical has been reviewed, including an updated exam of the patient. There are NO changes in the patient's condition. Risks, benefits, and alternatives have been discussed and questions answered. Patient agrees to proceed with procedure.
[2024-03-19] MEDS: ceFAZolin 2 GM/D5W 50 ML 2 GM/50 ML BAG IVPB (07:49)
[2024-03-19] MEDS: LIDOCAINE HCL 1% LOCAL INJ 10 ML VIAL 20 ML INFILTRATE (08:16)
--- NOTE | 2024-03-19 08:42 | P.OP_ITS ---
Procedure Note - Detailed Date of Procedure 03/19/24 Pre-op Diagnosis left hydrocele Post-op Diagnosis Same Procedure Performed Left hydrocelectomy, left orchiopexy Surgeon Walker Palacios MD Anesthesia General Description of Procedure Patient was taken the operative suite correctly identified. Once anesthesia was obtained was placed in supine position prepped and draped usual sterile fashion. Transverse incision was made in the left hemiscrotum. The hydrocele sac was brought out into the operative field. It was incised and drained of 350 cc of straw-colored fluid. The excess tissue was then excised with the edges fulgurated. Hemostasis was adequate. Orchiopexy was then performed using 3-0 E thibond in a three-point fixture. Quarter-inch Meghan drain was placed through a separate stab incision and secured. [place] was closed using 3-0 chromic. Skin was closed using 3-0 chromic in a running fashion. Skin incision was anesthetized using 1% lidocaine without epinephrine. Patient tolerated procedure well without any complications and was taken recovery stable condition. He will remove the drain in 2-3 days time. He will follow-up in 2-3 weeks time. He developed any problems will call us. This completes dictation. Please send a copy of op note to my office. Estimated Blood Loss 5 Drains Yes Packing No Pathology Yes Complications No immediate complications Condition Stable Disposition PACU
[2024-03-19 08:45] VITALS: BP 130/68; PULSE 58; RESP 19; TEMP 36.2; O2SAT 98
[2024-03-19 09:00] VITALS: BP 129/71; PULSE 53; RESP 10; O2SAT 100
[2024-03-19 09:15] VITALS: BP 119/73; PULSE 55; RESP 14; O2SAT 100
[2024-03-19 09:25] VITALS: BP 124/71; PULSE 56; RESP 16
[2024-03-19 09:55] VITALS: BP 143/74; PULSE 53; RESP 16
== END 2024-03-19 10:15 | disposition home or self-care (01) ==
PROVIDERS: PCP Family Medicine; Visit Provider Urology
PROC: (CPT 55040; principal; 2024-03-19 07:30)
DX: N43.3 Hydrocele, unspecified (principal); E78.5 Hyperlipidemia, unspecified; D64.9 Anemia, unspecified; I10 Essential (primary) hypertension; R73.03 Prediabetes; K21.9 Gastro-esophageal reflux disease without esophagitis; Z85.46 Personal history of malignant neoplasm of prostate
CPT/HCPCS: 55040; 54640; 88302; 93005; A9270; J0690; J2405; J2704; J3010; J7120

== ENCOUNTER 2024-05-10 08:47 | Outpatient (CLI) | payer MEDICARE, SELFPAY ==
[2024-05-10 17:15] LABS: Alanine Aminotransferase 16 U/L (6-50); Alkaline Phosphatase 76 U/L (38-126); Anion Gap 8 mmol/L (4-12); Aspartate Amino Transferase 28 U/L (17-59); Bilirubin,Total 0.5 mg/dL (0.2-1.3); Blood Urea Nitrogen 16 mg/dL (9-20); Calcium 9.1 mg/dL (8.4-10.2); Carbon Dioxide 28 mmol/L (22-30); Chloride 102 mmol/L (98-107); Cholesterol 215 mg/dL (0-200); Estimated Glomerular Filt Rate > 60; Glucose 95 mg/dL (65-110); HDL Direct 64 mg/dL; Potassium 4.3 mmol/L (3.4-5.0); Sodium 138 mmol/L (137-145); Triglycerides 107 mg/dL (<150)
[2024-05-10 17:25] LABS: LDL Cholesterol Direct 116 mg/dL
[2024-05-10 17:48] LABS: Hemoglobin A1C 5.8 % (<5.7)
== END 2024-05-10 08:48 | disposition home or self-care (01) ==
LOC: ANHGOSHLAB 08:48
PROVIDERS: PCP Family Medicine; Visit Provider Family Medicine
DX: E78.5 Hyperlipidemia, unspecified (principal); R73.03 Prediabetes; Z13.228 Encounter for screening for other metabolic disorders
CPT/HCPCS: 36415; 80053; 80061; 83036